=== PATIENT | male | born 1970 | race Caucasian/White ===

== ENCOUNTER → 2018-04-01 16:18 | Outpatient (CLI) | payer BC, SELFPAY ==
--- NOTE | 2018-04-01 16:23 | XR_ITS ---
XR knee RT 3V HISTORY: ITS.REASON: EFFUSION OF RT KNEE,RT KNEE PAIN ORDERING PHYSICIAN: Charlotte Flynn PATIENT AGE: 48 years FINDINGS: Mild osteoarthritic change of the medial compartment and patellofemoral joint with slight decrease in joint space and minimal osteophyte formation. No fracture or dislocation. No lytic or blastic change. No obvious suprapatellar effusion. Small effusions may not be seen by radiograph. IMPRESSION: Mild osteoarthritis
== END ==
PROVIDERS: PCP Nurse Practitioner Family; Visit Provider Nurse Practitioner Family
DX: M25.461 Effusion, right knee (principal); M25.561 Pain in right knee
CPT/HCPCS: 73562

== ENCOUNTER → 2019-08-22 09:26 | Outpatient (CLI) | payer BC, SELFPAY ==
--- NOTE | 2019-08-22 09:33 | CT_ITS ---
PROCEDURE: CT ABDOMEN PELVIS W CON CLINICAL INDICATION: ABD WALL BULGE ABD WALL BULGE mid abdominal pain worse after eating COMPARISON: No exams were available for comparison TECHNIQUE: IV Contrast: 75ML OPTIRAY 350 Oral Contrast 20ml Gastroview Axial images obtained with sagittal and coronal reformats. All CT scans at the facility use one or more dose reduction, viz: automated exposure control, ma/kV adjustment per patient size (including targeted exams where dose is matched to indication, i.e. head), or iterative reconstruction technique. FINDINGS: Lower thorax: No acute finding ABDOMEN: liver there is mild diffuse hypodensity of the liver suggesting fatty infiltration. Gallbladder: Post cholecystectomy Pancreas: No masses or peripancreatic fluid collections. Spleen: unremarkable Adrenals: unremarkable Kidneys/ureters: The kidneys are normal in size and show symmetrical function both appearing normal. PELVIS: Reproductive: unremarkable the prostate is borderline enlarged. Bladder: Nondistended. No obvious stones or masses. Appendix: The appendix is rather long but partially air-filled with no inflammatory changes noted ABDOMEN & PELVIS: Stomach bowel: The stomach duodenal sweep and small bowel appear grossly normal. There is moderate scattered stool and oral contrast in the ascending and transverse colon. The descending colon is decompressed, there is moderate stool in the sigmoid colon which is mildly redundant. Peritoneum: No abnormal fluid collections. No obvious inflammatory changes. No free air. There is a tiny umbilical hernia containing fat only. There is abundant fat within the mesentery. Lymph nodes: No enlarged lymph nodes apparent. Vasculature: No evidence of abdominal aortic aneurysm. No retroperitoneal hemorrhage evident. Bones: There is an anterior right ankle deformity of the xiphisternum which could be a cause for mild fullness or bulge at this location the upper abdomen IMPRESSION: Findings as described, no definite acute abdominal or pelvic pathology identified Dictated by: Dr. Tang Mendoza MD 08/22/2019 12:[address] Tang Mendoza MD in [place] 08/22/2019 12:59
== END ==
PROVIDERS: PCP Nurse Practitioner Family; Visit Provider Nurse Practitioner Family
DX: R19.00 Intra-abdominal and pelvic swelling, mass and lump, unspecified site (principal)
CPT/HCPCS: 74177; Q9967

== ENCOUNTER → 2021-10-05 09:21 | Outpatient (CLI) | payer BC, SELFPAY ==
--- NOTE | 2021-10-05 09:22 | ECG_ITS ---
APPROVED REPORT Exam: Resting ECG HR:70 bpm ECG Measurements Heart Rate 70 AXES IN 160 P 37 QRSd 82 QRS 4 QT 382 T 35 QTc 412 Conclusion Normal sinus rhythm Normal ECG Electronically signed by : Eren Gonzalez MD 10/07/2021 12:15:29
[2021-10-05 10:08] LABS: Basophils # 0.1 K/mm3 (0-0.2); Basophils % 1.1 % (0.1-2.0); Eosinophils # 0.1 K/mm3 (0.0-0.4); Eosinophils % 1.3 % (0.1-12.0); Hematocrit 47.6 % (42.0-52.0); Hemoglobin 16.7 g/dL (14.1-18.0); Lymphocytes # 2.4 K/mm3 (0.7-4.5); Lymphocytes % 41.3 % (10-50); Mean Corpuscular HGB Conc 35.1 g/dL (31.8-35.4); Mean Corpuscular Hemoglobin 30.3 pg (27.0-31.2); Mean Corpuscular Volume 86.4 fl (80-94); Mean Platelet Volume 8.2 fl (7.4-10.4); Monocytes # 0.3 K/mm3 (0.1-1.0); Monocytes % 4.8 % (1.7-9.3); Neutrophils % 51.5 % (37.0-80.0); Platelet Count 315 K/mm3 (142-424); Red Blood Count 5.51 M/mm3 (4.60-6.20); Red Cell Distribution Width 13.4 % (11.5-17.5); White Blood Count 5.9 K/mm3 (4.8-10.8)
[2021-10-05 10:26] LABS: Microscopic, Urine URINE MICROSCOPIC (MICROSCOPIC)
[2021-10-05 10:36] LABS: Appearance,Urine CLEAR (Clear); Bilirubin,Urine Negative (Negative); Blood, Urine Negative (Negative); Color,Urine YELLOW (Yellow); Glucose,Urine (UA) Negative (Negative); Ketones,Urine Negative (Negative); Leukocyte Esterase,Urine Negative (Negative); Nitrate,Urine Negative (Negative); Protein,Urine Negative (Negative); Urobilinogen,Urine 0.2 EU/dl (0.2)
[2021-10-05 10:42] LABS: Chloride 102 mmol/L (98-107); Potassium 4.5 mmoL/L (3.5-5.1); Sodium 138 mmol/L (136-145)
[2021-10-05 10:45] LABS: Anion Gap 11.5 mEq/L (5-15); Blood Urea Nitrogen 11 mg/dl (9-20); Calcium 9.3 mg/dl (8.4-10.2); Carbon Dioxide 29 mmol/L (22.0-30.0); Estimated Glomerular Filt Rate 79 ml/min (>60); GFR (African American) 96 ML/MIN (>60); Glucose 109 mg/dl (74-100)
[2021-10-05 11:05] LABS: Squamous Epithelial Cell,Urine Occasional #/hpf (0-5)
== END ==
PROVIDERS: PCP Nurse Practitioner Family; Visit Provider Surgery
DX: Z01.818 Encounter for other preprocedural examination (principal); I10 Essential (primary) hypertension; K42.9 Umbilical hernia without obstruction or gangrene
CPT/HCPCS: 36415; 80048; 81001; 85025; 93005

== ENCOUNTER → 2021-11-16 14:49 | Outpatient (CLI) | payer BC, SELFPAY | PROVIDERS: Visit Provider Surgery | DX: Z01.818 Encounter for other preprocedural examination (principal); Z11.52 Encounter for screening for COVID-19 | CPT/HCPCS: C9803; U0003; U0005 ==

== ENCOUNTER 2021-11-18 06:02 | Day surgery (SDC) | payer BC, SELFPAY ==
[2021-11-15 14:31] VITALS: BMI 40.6
[2021-11-18] VITALS (10 sets, daily range): BP systolic 106–147; BP diastolic 71–102; PULSE 60–74; RESP 16–18; TEMP 36.1–43; O2SAT 92–96
--- NOTE | 2021-11-18 07:47 | P.PN_ITS ---
[facility] Anesthesia Checklist - Patient Identification Patient Identification: Arm Band - Structural Data Admitted From: Home Planned Operative Procedure/s: Laparoscopic Umbilical Hernia Repair Consent for Planned Operative Procedure(s) Verified: Yes Verified Documents: Surgical Consent, History and Physical - NPO Status Verified Time NPO: 00:00 - Additional verifications Anesthesia Reactions: No Hx Blood Transfusions: No - Airway Assessment C-Spine Mobility Assessed: Yes (mp2) TMJ Mobility Assessed: Yes Dentition: Good Dentition - Neurological Assessment Level of Consciousness: Awake, Alert - Anesthesia Plan Anesthesia Risk discussed: Yes Anesthesia Plan: Verified ASA Class: III Anesthesia Type: General [facility] History I have reviewed the patient's past medical history: Yes Medical History: Reports:: Cancer (oral-soft palate), Hyperlipidemia, Hypertension Denies:: Diabetes Mellitus Type 1, Diabetes Mellitus Type 2, MRSA, Seizures *Have you ever received a pneumonia vaccine?: No *Have you received a flu vaccine this season?: Yes Anesthesia experience/problems:: nac Other Surgeries: Yes: Cholecystectomy Amputation: No Fractures: No - *Social History Last grade of school completed: High school graduate Smoking Status: Never smoker Tobacco Type: cigarettes, smokeless tobacco # Packs/Day (cigarettes): 1 Alcohol Intake: never Substance Use Type: denies use *Occupational Status:: employed Household Members: spouse *Travel in the last 8 weeks: None Family Hx:: Unable to obtain
--- NOTE | 2021-11-18 08:03 | HMH.OPNOTE ---
Date of procedure: 11/18/21 Pre-op Diagnosis:: Umbilical hernia Post-op Diagnosis:: Same Procedure performed:: Open umbilical hernia repair Surgeon:: Kyle Richardson MD Clinical Services Specialist(s):: Lazaro BOX REPAIRER:: Isaias Harper Anesthesia: GETA Estimated blood loss (mL): 10 Operative findings:: 1 cm defect Primary repair was 0 Ethibond Operative note:: After informed consent was obtained the patient was taken to the operating room and placed in the supine position. General anesthesia was induced and his abdomen was prepped and draped in a sterile fashion. After infiltration local anesthetic a curvilinear infraumbilical incision was made. The deep subcutaneous tissue was dissected with a combination of electrocautery, sharp dissection, and blunt dissection. The umbilical stalk was transected. A 1 cm defect was encountered. Primary repair with 0 Ethibond was completed. The wound was irrigated. The umbilical stump was reapproximated with 2-0 Vicryl. The deep subcutaneous tissue was also reapproximated with 2-0 Vicryl and skin was then closed with interrupted 4-0 Monocryl in a subcuticular fashion. Dressings were applied and the patient was transferred to recovery in stable condition. Condition: stable Disposition: PACU Specimens:: None Complications:: No immediate
--- NOTE | 2021-11-18 08:17 | HMH.ANESI ---
[facility] Anesthesia Record Part I Intake, IV Amount: 1,000 Estimated blood loss (mL): 10 Urine output (mL): 0 Blood Pressure: 147/102 SaO2: 92 Pulse Rate: 73 Respiratory Rate: 16 Temperature: 98.1 F Patient is:: Drowsy, Stable Stable to PACU at:: 08:15
--- NOTE | 2021-11-18 09:02 | HMH.ANESII ---
[facility] Anesthesia Record Part II Discharge Time: 08:45 Destination: Surgical Day Care (OP Surgery) PACU nurse assessment reviewed?: Yes Patient Condition:: Good Anesthesia Complications:: None Swallowing reflex intact?: Yes Cyanosis?: No Blood Pressure: 110/72 Pulse Rate: 60 Temperature: 98.4 F Mental Status: Alert & Oriented Pain level:: 0 Nausea and/or vomitting:: None Intake, IV Amount: 0
== END 2021-11-18 09:24 | disposition home or self-care (01) ==
LOC: OR 06:05
PROVIDERS: PCP Nurse Practitioner Family; Visit Provider Surgery
PROC: 0WQF4ZZ Repair Abdominal Wall, Percutaneous Endoscopic Approach (ICD-10-PCS; CPT 49585; principal; 2021-11-18 07:30)
DX: K42.9 Umbilical hernia without obstruction or gangrene (principal); E78.5 Hyperlipidemia, unspecified; I10 Essential (primary) hypertension; Z85.818 Personal history of malignant neoplasm of other sites of lip, oral cavity, and pharynx; E66.9 Obesity, unspecified; Z68.41 Body mass index [BMI] 40.0-44.9, adult; Z79.899 Other long term (current) drug therapy
CPT/HCPCS: 49585; 96374; J2405; J2710

== ENCOUNTER 2022-08-21 17:39 | Emergency (ER) | payer BC, SELFPAY ==
[2022-08-21 18:10] VITALS: BP 134/86; PULSE 91; RESP 18; TEMP 36.7; O2SAT 97; BMI 40.0
[2022-08-21 18:31] VITALS: BP 134/86; PULSE 91; RESP 18; TEMP 36.7; O2SAT 97
--- NOTE | 2022-08-21 18:40 | EXP.UTC ---
Discharge Plan Disposition Patient Disposition: Home, Self-Care Condition: Good Prescriptions Prescriptions: No Action pravastatin 20 mg tablet 20 mg PO DAILY losartan 25 mg tablet 25 mg PO DAILY Referrals Follow up/Referrals: Charlotte Flynn APRN [Primary Care Provider] - See instructions Activity Restrictions/Add. Instructions Additional Instructions/Restrictions: *Monitor Temp, Over the counter Motrin or Tylenol as directed/as needed Tylenol every 4 hours and Motrin every 6 hours (as long as your family doctor has told you that you can take it) for fever or pain. and straight to ER if unable to lower temp less than 101.0 after medication given *Warm salt water gargles may help to soothe the throat *Throat Lozenges? *Warm fluids like tea with honey may help to soothe the throat? *Sleep elevated *Humidifier/Vaporizer Follow up IMMEDIATELY for new or worsening symptoms or no Noticeable improvement over the next 48-72 hours. 911 for difficulty breathing or swallowing You were tested for today for COVID19 your test result should be back in the next 24-48 hours, you may check your results on the [facility] Make sure to take your Vitamins Vit. C Vit D and Zinc if you can take them Clinical Impressions Clinical Impression: Encounter for laboratory testing for COVID-19 virus Instructions Patient Instructions: Coronavirus Disease 2019, Preventing the Spread of Coronavirus Discharge Instructions Discharge ED Provider: Chen Sousa [facility] General Stated complaint: positive at home covid test Mode of Arrival: Ambulatory Source of Information: Patient Limitations: No Limitations Time Seen by Provider: 08/21/22 18:40 Description of Symptoms (Recalled from Triage Doc. by RN): PATIENT C/O COUGH, RUNNY NOSE, BODY ACHES, AND FEVER SINCE YESTERDAY. REPORTS A POSITIVE AT HOME COVID TEST HEENT Symptoms (Recalled from RN notes): No Resp Symptoms (Recalled from RN notes): No Skin Symptoms (Recalled from RN notes): No MS Symptoms (Recalled from RN notes): No Functional Status (Recalled from RN notes): WNL History of Present Illness Provider Complaint: Patient states that he started feeling bad yesterday states that he has been having sore scratchy throat, body aches, fever and runny nose States that he seen his PCP earlier and was started on zpack but decided to take home test and it was positive Related Data Home Medications Medication Instructions Recorded Confirmed losartan 25 mg tablet 25 mg PO DAILY htn 10/05/21 11/30/21 pravastatin 20 mg tablet 20 mg PO DAILY Cholesterol 10/05/21 11/30/21 Allergies Allergy/AdvReac Type Severity Reaction Status Date / Time No Known Allergies Allergy Verified 11/30/21 10:53 Worker's Comp Is this a Worker's Comp case?: No PFSH PFSH Social History Smoking Status: Never smoker alcohol intake: never substance use type: denies use current occupational status: employed Travel in the last 8 weeks: None household members: spouse ROS Obtained: Yes All systems reviewed & no additional complaints except as documented and Yes Systems reviewed as appropriate & no additional complaints except as documented Constitutional Constitutional: Reports system reviewed and no additional complaints, except as documented, Reports as per HPI, Reports body ache, Reports chills and Reports fever(s) ENT Ears, Nose, Mouth, and Throat: Reports system reviewed and no additional complaints, except as documented, Reports as per HPI, Reports nasal congestion, Reports nasal discharge and Reports sore throat Cardiovascular Cardiovascular: Reports system reviewed and no additional complaints, except as documented and Reports as per HPI Respiratory Respiratory: Reports system reviewed and no additional complaints, except as documented and Reports as per HPI Physical Exam General General appearance: alert and in no apparent distress Expanded ENT Exam Nose exam
== END 2022-08-21 18:51 | disposition home or self-care (01) ==
PROVIDERS: Emergency Provider Nurse Practitioner; PCP Nurse Practitioner Family
DX: U07.1 COVID-19 (principal); M79.10 Myalgia, unspecified site; Z79.899 Other long term (current) drug therapy
CPT/HCPCS: 99213; C9803; G0463; U0003; U0005

== ENCOUNTER → 2023-08-01 12:14 | Outpatient (CLI) | payer BC, SELFPAY ==
[2023-07-31 17:51] LABS: Adenovirus,PCR Not Detected (NotDetected); Bordetella Pertussis Not Detected (NotDetected); Chlamydophila Pneumoniae, PCR Not Detected (NotDetected); Coronavirus 19, PCR Not Detected (NotDetected); Coronavirus 229E Not Detected (NotDetected); Coronavirus NL63 Not Detected (NotDetected); Coronavirus OC43 Not Detected (NotDetected); Coronovirus HKU1,PCR Not Detected (NotDetected); Human Metapneumovirus Not Detected (NotDetected); Influenza A, PCR Not Detected (NotDetected); Influenza AH1, 2009 Not Detected (NotDetected); Influenza AH1, PCR Not Detected (NotDetected); Influenza AH3,PCR Not Detected (NotDetected); Influenza B, PCR Not Detected (NotDetected); Mycoplasma Pneumoniae, PCR Not Detected (NotDetected); Parainfluenza 1, PCR Not Detected (NotDetected); Parainfluenza 2, PCR Not Detected (NotDetected); Parainfluenza 3, PCR Not Detected (NotDetected); Parainfluenza 4, PCR Not Detected (NotDetected); Respiratory Syncytial Virus Not Detected (NotDetected)
[2023-07-31 19:43] LABS: Rhinovirus/Enterovirus Detected (NotDetected)
== END ==
PROVIDERS: PCP Nurse Practitioner Family; Visit Provider Nurse Practitioner Family
DX: R05.9 Cough, unspecified (principal); B34.1 Enterovirus infection, unspecified
CPT/HCPCS: 87581; 87632; 87798

== ENCOUNTER 2024-12-01 14:34 | Outpatient (CLI) | payer BC, SELFPAY ==
[2024-12-01 15:47] LABS: Albumin Level 3.9 g/dl (3.5-5.0); Chloride 103 mmol/L (98-107); Sodium 133 mmol/L (136-145)
[2024-12-01 15:48] LABS: Potassium 4.4 mmoL/L (3.5-5.1)
[2024-12-01 15:50] LABS: Alanine Aminotransferase 55 U/L (12-78); Albumin/Globulin Ratio 1.6 (1.1-1.8); Anion Gap 8.4 mEq/L (5-15); Aspartate Amino Transferase 41 U/L (17-59); Blood Urea Nitrogen 16 mg/dl (9-20); Carbon Dioxide 26 mmol/L (22.0-30.0); Estimated Glomerular Filt Rate 89 ml/min (>60); GFR (African American) 107 ML/MIN (>60); Globulin 2.5 g/dL (1.3-3.2); Total Protein,Serum 6.4 g/dl (6.3-8.2)
[2024-12-01 15:51] LABS: Alkaline Phosphatase 59 U/L (38-126); Bilirubin,Total 0.5 mg/dl (0.2-1.3); Calcium 9.3 mg/dl (8.4-10.2); Chol/HDL Ratio 7.4 (1-3.5); Cholesterol 208 mg/dl (140-200); Glucose 105 mg/dl (74-100); HDL Cholesterol 28 mg/dl (40-60)
[2024-12-01 15:55] LABS: Direct LDL Cholesterol 133.11 mg/dL (100-129)
[2024-12-01 16:13] LABS: Triglycerides 407 mg/dl (30-150)
== END 2024-12-01 23:59 | disposition home or self-care (01) ==
LOC: LAB 14:35
PROVIDERS: PCP Nurse Practitioner Family; Visit Provider Nurse Practitioner Family
DX: I10 Essential (primary) hypertension (principal)
CPT/HCPCS: 36415; 80053; 80061

== ENCOUNTER 2024-12-22 15:44 | Outpatient (CLI) | payer BC, SELFPAY | END 2024-12-22 23:59 | disposition home or self-care (01) | LOC: LAB.DROPOF 15:44 | PROVIDERS: PCP Nurse Practitioner Family; Visit Provider Nurse Practitioner Family | DX: R68.89 Other general symptoms and signs (principal); J10.1 Influenza due to other identified influenza virus with other respiratory manifestations | CPT/HCPCS: 87635 ==

== ENCOUNTER → 2025-08-04 20:22 | Outpatient (CLI) | payer BC, SELFPAY ==
--- OUTSIDE RECORDS SUMMARY | 2025-08-04 20:25 | XMS_ITS | Clinical Summary ---
Author Organization [facility] Address [address] [place] [id number] Phone [email or web address] Care Team Providers Care Photographer Portrait Name Role Phone Flynn Charlotte Primary Care Provider [phone] Allergies No known active allergies Medications losartan (COZAAR) 25 MG tablet 1 Active pravastatin (PRAVACHOL) 10 MG tablet 1 Active loteprednol (Lotemax) 0.5 % ophthalmic suspensionIndicati ons:Allergic conjunctivitis of left eye Administer 1 drop into the left eye in the morning and 1 drop at noon and 1 drop in the evening and 1 drop before bedtime. 5 mL 2 Active Active Problems Problem Noted Date Diagnosed Date Acute sinusitis 12/08/2011 Overview (04/10/2018): Other acute sinusitis 10/14/2010 Overview (04/10/2018): Acute upper respiratory infection 01/26/2009 Overview (04/10/2018): Other examination of ears and hearing 12/18/2007 Overview (04/10/2018): Encounter for hearing examin ation following failed hearing screening 12/18/2007 Overview (04/10/2018): Immunizations Immunization Administration Dates Next Due Covid-19 (Brady J&J) (CVX-212) 04/08/2021 DTaP (DAPTACEL) 5 pertussis antigens (CVX-106) 0 02/07/2016 Social History Tobacco Use Types Packs/Day Years Used Date Smoking Tobacco: Former Cigarettes Smokeless Tobacco: Current Snuff Comments:Quit 10 years ago Intimate Partner Violence Answer Date R ecorded Insults You Not on file 02/22/2021 Threatens You Not on file 02/22/2021 Screams at You Not on file 02/22/2021 Physically Hurt Not on file 02/22/2021 Intimate Partner Violence Score Not on file 02/22/2021 Depression Answer Date Recorded PHQ Total Score 0 08/22/2022 Stress Answer Date Recorded Stress in your Life Not on file 09/15/2024 Dealing with Stress 3 09/15/2024 Sex and Gender Information Value Date Recorded Sex Assigned at Not on file Legal Sex Male 7:27 AM CDT Gender Identity Not on file Sexual Orientation Not on file Last Filed Vital Signs Vital Sign Reading Time Taken Comments Blood Pressure 130/87 04/07/2022 11:37 AM EDT Pulse 78 04/07/2022 11:37 AM EDT Temperature 36.2 C (97.1 F) 04/07/2022 11:37 AM EDT Respiratory Rate 14 12/13/2021 6:09 AM EST Oxygen Saturation 99% 04/07/2022 11:37 AM EDT Inhaled Oxygen Concentration - - Weight 141 kg (310 lb 3.2 oz) 04/07/2022 11:37 A M EDT Height 182.9 cm (6') 12/13/2021 6:09 AM EST Body Mass Index 42.07 12/13/2021 6:09 AM EST Plan of Treatment Health Maintenance Due Date Last Done Comments CT Colonography 1972 Colonoscopy 1972 Colorectal Cancer Screening Combo 1972 DNA Cologuard 1972 Dental Cleaning/Exam 1972 FIT or FOBT Test 1972 HIV Screening 1972 Hepatitis C Screening 1972 Sigmoidoscopy 1972 Annual Preventive Exam 1990 Hep B Infection Screening - Triple Screen 1990 Hepatitis B Immunization (1 of 3 - 19+ 3-dose series) 1991 Zoster Immunization (1 of 2) 2022 Covid-19 Immunization (3 - 2024- season) 2025 11/03/2021, 04/08/2021 Influenza Immunization (#1) 2025 1003/2021, 08/12/2020, 08/27/2018, Additional history exists Tetanus Diphtheria and Pertussis Immunization (2 - Tdap) 02/06/2026 02/07/2016 HIB Immunization Aged Out No longer e ligible based on patient's age to complete this topic HPV Immunization Aged Out No longer e ligible based on patient's age to complete this topic Hepatitis A Immunization Aged Out No longer eligible based on patient's age to complete this topic Pneumococcal Immunization Aged Out No longer eligible based on patient's age to complete this topic Polio Immunization Aged Out No longer eligible based on patient's age to complete this topic Insurance Care Teams Photographer Portrait Relationship Specialty Start Date End Date Charlotte Flynn [address] [phone] PCP - General Internal Medicine 12/13/21
== END ==
LOC: SL 20:23
PROVIDERS: PCP Nurse Practitioner Family; Visit Provider Nurse Practitioner Family
DX: I10 Essential (primary) hypertension (principal); R06.83 Snoring
CPT/HCPCS: 95811